=== PATIENT | male | born 1980 | race Caucasian/White ===

== ENCOUNTER 2018-07-22 09:28 | Emergency (ER) | payer MEDICAID, SELFPAY ==
--- NOTE | 2018-07-22 09:41 | NUR.NOTE ---
pt states that he has had a cough that has progressively gotten worse over the past week. pt presents with noted diaphoresis however is has no fever pt has been taking ibuprofen at home
[2018-07-22 09:43] VITALS: BP 129/86; PULSE 77; RESP 16; TEMP 37.4; O2SAT 98
[2018-07-22] MEDS: Albuterol/Ipratropium 3 ML UPD VIAL (10:05)
--- NOTE | 2018-07-22 10:37 | W.ED.GENAD ---
Discharge Plan Disposition Patient Disposition: AGAINST MEDICAL ADVICE Condition: Stable Discharge Details Chief Complaint: RespSymp Clinical Impression: Cough Primary Care Provider: Kim Cruz ED Provider: Mohamud Porter Medical Decision Making Patient presenting to the emergency department for cold-like symptoms for the past week. Medical student saw and examined patient prior to me assessing patient and recommended chest x-ray and DuoNeb. Patient had nebulizer treatment due to report of significant wheezing due to volume in the emergency department I was not able to immediately exam the patient. Pending my full examination and chest x-ray patient stated that he had to leave the emergency department. Patient vital signs are stable, patient was talking without any respiratory distress and was ambulatory. Patient is alert and oriented x4 and has capacity to make decisions to leave without further examination. I was able to speak to the patient but not examine the patient due to him already on his way out of the department. I did inform patient that he should return to the emergency department for any worsening of symptoms and that full diagnosis or treatment of his condition could not be performed with him leaving abruptly. Patient stated that he had to go due to needing to get home and catch a bus due to children being at home. Return precautions discussed. Patient did not sign AMA paperwork due to him in the middle of eloping the department. HPI General Mode of arrival: ambulatory. Date/Time Provider Initiated Documentation: 07/22/18 09:51. Information obtained by: patient. History of Present Illness 37 year old M presents to the emergency department with the chief complaint of Cough and cold symptoms, Patient started experiencing this week(s) Related Data Allergies Allergy/AdvReac Type Severity Reaction Status Date / Time Penicillins Allergy Intermediate Unverified 07/22/18 09:45 General Stated Complaint: RespSymp BETZY: 4 PFSH Social History Smoking and Tabacco status: Current, status unknown Course Vital Signs Temperature 37.4 C 07/22/18 09:43 Pulse 77 07/22/18 09:43 Respiratory Rate 16 07/22/18 09:43 Blood Pressure 129/86 07/22/18 09:43 Pulse Oximetry 98 07/22/18 09:43 Temperature 37.4 C 07/22/18 09:43 Temperature Source Skin 07/22/18 09:43 Pulse 77 07/22/18 09:43 Respiratory Rate 16 07/22/18 09:43 Respiratory Effort 07/22/18 10:02 Blood Pressure 129/86 07/22/18 09:43 Blood Pressure Position Sitting 07/22/18 09:43 Pulse Oximetry 98 07/22/18 09:43 Oxygen Delivery Method Room Air 07/22/18 09:43 Oxygen Flow Rate 0 07/22/18 09:43 Pain Level 3 07/22/18 09:43
--- NOTE | 2018-07-22 10:40 | ED.GENADUL_ITS ---
Discharge Plan Disposition Patient Disposition: AGAINST MEDICAL ADVICE Condition: Stable Discharge Details Chief Complaint: RespSymp Clinical Impression: Cough Primary Care Provider: Kim Cruz ED Provider: Mohamud Porter Medical Decision Making Patient presenting to the emergency department for cold-like symptoms for the past week. Medical student saw and examined patient prior to me assessing patient and recommended chest x-ray and DuoNeb. Patient had nebulizer treatment due to report of significant wheezing due to volume in the emergency department I was not able to immediately exam the patient. Pending my full examination and chest x-ray patient stated that he had to leave the emergency department. Patient vital signs are stable, patient was talking without any respiratory distress and was ambulatory. Patient is alert and oriented x4 and has capacity to make decisions to leave without further examination. I was able to speak to the patient but not examine the patient due to him already on his way out of the department. I did inform patient that he should return to the emergency department for any worsening of symptoms and that full diagnosis or treatment of his condition could not be performed with him leaving abruptly. Patient stated that he had to go due to needing to get home and catch a bus due to children being at home. Return precautions discussed. Patient did not sign AMA paperwork due to him in the middle of eloping the department. HPI General Mode of arrival: ambulatory . Date/Time Provider Initiated Documentation: 07/22/18 09:51 . Information obtained by: patient . History of Present Illness 37 year old M presents to the emergency department with the chief complaint of Cough and cold symptoms, Patient started experiencing this week(s) Related Data Allergies Allergy/AdvReac Type Severity Reaction Status Date / Time Penicillins Allergy Intermediate Unverified 07/22/18 09:45 General Stated Complaint: RespSymp BETZY: 4 PFSH Social History Smoking and Tabacco status: Current, status unknown Course Vital Signs Temperature 37.4 C 07/22/18 09:43 Pulse 77 07/22/18 09:43 Respiratory Rate 16 07/22/18 09:43 Blood Pressure 129/86 07/22/18 09:43 Pulse Oximetry 98 07/22/18 09:43 Temperature 37.4 C 07/22/18 09:43 Temperature Source Skin 07/22/18 09:43 Pulse 77 07/22/18 09:43 Respiratory Rate 16 07/22/18 09:43 Respiratory Effort 07/22/18 10:02 Blood Pressure 129/86 07/22/18 09:43 Blood Pressure Position Sitting 07/22/18 09:43 Pulse Oximetry 98 07/22/18 09:43 Oxygen Delivery Method Room Air 07/22/18 09:43 Oxygen Flow Rate 0 07/22/18 09:43 Pain Level 3 07/22/18 09:43
[2018-07-22 10:41] VITALS: BP 129/86; PULSE 77; RESP 16; TEMP 37.4; O2SAT 98
== END 2018-07-22 10:35 | disposition left against medical advice (07) ==
PROVIDERS: Emergency Provider Nurse Practitioner Family; PCP Nurse Practitioner Adult Health
DX: Z53.21 Procedure and treatment not carried out due to patient leaving prior to being seen by health care provider (principal)
CPT/HCPCS: J7620

== ENCOUNTER 2020-04-15 13:35 | Outpatient (REF) | payer MEDICAID, SELFPAY ==
[2020-04-15 21:07] LABS: HCT 49.4 % (40.0-50.0); HGB 16.5 g/dL (13.5-17.5); MCH 30.8 pg (27.0-33.0); MCHC 33.4 % (32.0-36.0); MCV 92.3 fL (80-95); MPV 10.5 fL (8.0-11.0); Platelet Count 235 10^3/uL (130-400); RBC 5.35 10^6/uL (4.36-5.78); RDW 12.7 % (11.8-14.1); RDW-SD 43.3 fL; WBC 10.37 10^3/uL (4.4-10.8)
[2020-04-15 21:16] LABS: ALT 79 U/L (16-63); AST 31 U/L (15-37); Albumin 5.2 g/dL (3.4-5.0); Alkaline Phosphatase 91 U/L (46-116); Anion Gap 6.3 mmol/L (3-11); BUN 8 mg/dL (7-18); Bilirubin, Total 0.5 mg/dL (0.2-1.0); CO2 32.7 mmol/L (21.0-32.0); CREATININE 1.08 mg/dL (0.70-1.30); Chloride 101 mmol/L (98-107); Glucose 80 mg/dL (74-106); Potassium 4.5 mmol/L (3.5-5.1); Sodium 140 mmol/L (136-145); Total Protein 8.9 g/dL (6.4-8.2)
[2020-04-17 16:07] LABS: HIV-1/2 Ag & Ab Screen Negative (Negative)
[2020-04-22 16:28] LABS: Hepatitis B surface Ag Negative (Negative); Hepatitis C Ab w Rflx HCV PCR Reactive (Negative)
[2020-04-22 16:29] LABS: Hepatitis A Antibody IgM Negative (Negative)
[2020-04-22 16:30] LABS: Hepatitis B Core Antibody Negative (Negative)
[2020-04-22 16:32] LABS: HCV RNA Detection Quantitative 87700 IU/mL (Undetected)
[2020-07-16 16:58] LABS: Syphilis Total Ab w/Reflex Nonreactive (Nonreactive)
== END 2020-04-15 13:55 ==
LOC: NCHCN 13:35
PROVIDERS: PCP Nurse Practitioner Adult Health; Visit Provider Nurse Practitioner Family
DX: R10.9 Unspecified abdominal pain (principal)
CPT/HCPCS: 80053; 85027; 86704; 86709; 86803; 87340; 87389; 87491; 87522; 87591; 83735; 86780

== ENCOUNTER 2020-04-25 01:11 | Outpatient (CLI) | payer MEDICAID, SELFPAY ==
--- NOTE | 2020-04-25 | DI.RAD_ITS ---
EXAM: XR CHEST 2V PA LATERAL CLINICAL HISTORY: CHEST PAIN,R07.9 TECHNIQUE: 2D digital imaging was performed. COMPARISON: No exams were available for comparison FINDINGS: MEDIASTINUM: Normal. HEART: Normal. PULMONARY VASCULATURE: Normal. LUNGS: Clear. PLEURAL SPACE: No pleural effusion or pneumothorax. BONE:Mild degenerative disc changes in the midthoracic spine. IMPRESSION: No acute pulmonary findings. DATA REPOSITORY: RADIATION DOSE DELIVERED:
--- NOTE | 2020-04-25 | DI.RAD_ITS ---
EXAM: 2D digital imaging was performed. CLINICAL HISTORY: ABD PAIN,R10.9. COMPARISON: No exams were available for comparison TECHNIQUE: Supine views of the abdomen performed. FINDINGS: BOWEL GAS PATTERN: Nondistended. Normal quantity of stool. CALCIFICATIONS: No radiopaque calcifications. OSSEOUS STRUCTURES: Normal for age. OTHER FINDINGS: The visualized portions of the lung bases are clear. The heart size is normal. IMPRESSION: 1. Nonobstructive bowel gas pattern. 2. No radiopaque calculi. DATA REPOSITORY: RADIATION DOSE DELIVERED:
== END 2020-04-25 01:31 ==
PROVIDERS: PCP Nurse Practitioner Adult Health; Visit Provider Nurse Practitioner Family
DX: R07.9 Chest pain, unspecified (principal); R10.9 Unspecified abdominal pain
CPT/HCPCS: 71046; 74018

== ENCOUNTER 2020-05-06 16:30 | Outpatient (REF) | payer MEDICAID, SELFPAY ==
[2020-05-09 06:16] LABS: HCV Genotype 1a (Undetected)
[2020-05-09 11:16] LABS: ALT 215 U/L (7-55); ActiTest Grade A3; ActiTest Interpretation severe activity; ActiTest Score 0.78; Alpha-2-Macroglobulin 136 mg/dL (100 - 280); Apoliprotein A1 141 mg/dL (>=120); Bilirubin, Total 0.4 mg/dL (<=1.2); FibroTest Interpretation no fibrosis; FibroTest Score 0.09; FibroTest Stage F0; GGT 22 U/L (8 - 61); Haptoglobin 81 mg/dL (30 - 200)
== END 2020-05-06 16:50 ==
LOC: NCHCN 16:30
PROVIDERS: PCP Nurse Practitioner Adult Health; Visit Provider Nurse Practitioner Family
DX: B19.20 Unspecified viral hepatitis C without hepatic coma (principal)
CPT/HCPCS: 81596; 87521

== ENCOUNTER 2020-06-27 14:30 | Outpatient (REF) | payer MEDICAID, SELFPAY ==
[2020-06-28 13:19] LABS: HCV RNA Detection Quantitative 60 IU/mL (Undetected); HCV RNA Qualitative Detected (Undetected)
== END 2020-06-27 14:31 | disposition home or self-care (01) ==
LOC: NCHCN 14:30
PROVIDERS: PCP Nurse Practitioner Adult Health; Visit Provider Family Medicine
DX: B19.20 Unspecified viral hepatitis C without hepatic coma (principal)
CPT/HCPCS: 87522

== ENCOUNTER 2020-07-11 09:51 | Outpatient (REF) | payer MEDICAID, SELFPAY ==
[2020-07-12 14:25] LABS: HCV RNA Qualitative Undetected (Undetected)
== END 2020-07-11 09:52 | disposition home or self-care (01) ==
LOC: NCHCN 09:51
PROVIDERS: PCP Nurse Practitioner Adult Health; Visit Provider Family Medicine
DX: B19.20 Unspecified viral hepatitis C without hepatic coma (principal)
CPT/HCPCS: 87522

== ENCOUNTER 2022-10-28 16:25 | Outpatient (REF) | payer MEDICAID, SELFPAY ==
[2022-10-28 16:32] LABS: HGB 14.1 g/dL (13.5-17.5); MCH 30.2 pg (27.0-33.0); MCHC 33.6 % (32.0-36.0); MCV 90 fL (80-95); Platelet Count 178 10^3/uL (130-400); RBC 4.67 10^6/uL (4.36-5.78); RDW 12.9 % (11.8-14.1); RDW-SD 42.4 fL
[2022-10-28 16:57] LABS: ALT 31 U/L (16-63); AST 23 U/L (15-37); Albumin 4.6 g/dL (3.4-5.0); Alkaline Phosphatase 75 U/L (46-116); Anion Gap 8.8 mmol/L (3-11); BUN 15 mg/dL (7-18); Bilirubin, Total 0.4 mg/dL (0.2-1.0); CO2 29.2 mmol/L (21.0-32.0); CREATININE 0.9 mg/dL (0.70-1.30); Calcium 9.3 mg/dL (8.5-10.1); Chloride 103 mmol/L (98-107); Cholesterol 159 mg/dL (<200); Estimated GFR 111.42 (mL/min/1.73m2); Glucose 111 mg/dL (74-106); HDL Cholesterol 64 mg/dL (40-60); Potassium 4.1 mmol/L (3.5-5.1); Sodium 141 mmol/L (136-145); Total Protein 7.9 g/dL (6.4-8.2)
[2022-10-28 16:58] LABS: Triglyceride <25 mg/dL (<150)
[2022-10-28 17:10] LABS: LDL CHOLESTEROL 85 mg/dL (<100)
[2022-10-30 11:29] LABS: Hepatitis C Ab w Rflx HCV PCR Reactive (Negative)
[2022-10-30 14:35] LABS: HCV RNA Qualitative Undetected (Undetected)
== END 2022-10-28 16:26 | disposition home or self-care (01) ==
LOC: NCHCN 16:25
PROVIDERS: PCP Nurse Practitioner Adult Health; Visit Provider Nurse Practitioner Family
DX: B19.20 Unspecified viral hepatitis C without hepatic coma (principal); F11.20 Opioid dependence, uncomplicated; K21.9 Gastro-esophageal reflux disease without esophagitis; J45.20 Mild intermittent asthma, uncomplicated; F17.210 Nicotine dependence, cigarettes, uncomplicated; R79.89 Other specified abnormal findings of blood chemistry
CPT/HCPCS: 80053; 80061; 83721; 85027; 86803; 87522